=== PATIENT | male | born 1990 | race Caucasian/White ===

== ENCOUNTER 2018-03-20 22:26 | Inpatient (IN) | payer BC, OTHER ==
[~2018-03-20] VITALS: Ht 195.6 cm; Wt 72.6 kg
--- NOTE | 2018-03-20 23:30 | NUR ---
PRE-ADMISSION NOTE VS BP-135/94 T- P-111 R-20 PA-04/11. Sp02 AT 98% IN RA. PATIENT SEEN IN INTAKE. PATIENT INTOXICATED, FACE FLUSHED, ANXIOUS, RESTLESS, FIDGETY , UNABLE TO STAY STILL, SENSITIVE TO LIGHT AND C/O HEADACHE. AMBULATORY, GAIT IS SLIGHTLY UNSTEADY. PATIENT WTH HISTORY OF SEIZURE, LAST ONE WAS LAST Tuesday03/17/18 (4 SEIZURE). NO KNOWN ALLERGY BUT SENSITIVE TO SUBOXONE. PATIENT IS HERE FOR ETOH, BENZO AND OPIATE. WILL CONTINUE ADMISSION ON 3RD FLOOR.
[2018-03-20] MEDS ORDERED: DIAZEPAM 10 MG TABLET PO PRN (23:45)
[2018-03-20] MEDS ORDERED: MIRALAX 17 GM POWD.PACK PO PRN (23:45)
[2018-03-20] MEDS ORDERED: ONDANSETRON ODT 4 MG TAB.RAPDIS SL PRN (23:45)
[2018-03-20] MEDS ORDERED: MAGNESIUM HYDROXIDE 30 ML LIQUID UDC PO PRN (23:45)
[2018-03-20] MEDS ORDERED: NICOTINE 14 MG/24HR PATCH TD PRN (23:45)
[2018-03-20] MEDS ORDERED: NICOTINE POLACRILEX 4 MG GUM-PK OF TEN BC PRN (23:45)
[2018-03-20] MEDS ORDERED: LORAZEPAM 2 MG/1 ML VIAL IM PRN (23:45)
[2018-03-20] MEDS ORDERED: THIAMINE HCL 200 MG/2 ML VIAL IM ONE (23:45)
[2018-03-20] MEDS ORDERED: diphenhydrAMINE 50 MG CAPSULE PO PRN (23:45)
[2018-03-20] MEDS ORDERED: DICYCLOMINE HCL 20 MG TABLET PO PRN (23:45)
[2018-03-20] MEDS ORDERED: BUPRENORPHINE HCL 2 MG TAB.SUBL SL PRN (23:45)
[2018-03-20] MEDS ORDERED: LOPERAMIDE HCL 2 MG CAPSULE PO PRN ×2 (23:45)
[2018-03-20] MEDS ORDERED: ONDANSETRON 4 MG/2 ML VIAL IM PRN (23:45)
[2018-03-20] MEDS ORDERED: DIAZEPAM 5 MG TABLET PO PRN (23:45)
[2018-03-20] MEDS ORDERED: MAG HYDROX/AL HYDROX/SIMETH 30 ML LIQUID UDC PO PRN (23:45)
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
[2018-03-21] MEDS ORDERED: PHENOBARBITAL 60 MG TABLET PO SCH ×3 (00:15→21:00)
[2018-03-21 00:19] LABS: BASOPHILS # (AUTO) 0.1 K/uL (0.0-8.0); BASOPHILS % (AUTO) 1.2 % (0.0-2.0); EOSINOPHILS # (AUTO) 0.1 K/uL (0.0-0.7); EOSINOPHILS % (AUTO) 1.4 % (0.0-7.0); HEMATOCRIT 42.3 % (36.7-47.1); HEMOGLOBIN 14.3 g/dL (12.5-16.3); LYMPHOCYTES # (AUTO) 2.6 K/uL (20.0-40.0); LYMPHOCYTES % (AUTO) 38.7 % (20.5-51.5); MEAN CORPUSCULAR HGB CONC 34 g/dL (32.5-36.3); MEAN CORPUSCULAR VOLUME 85.6 fL (73.0-96.2); MONOCYTES # (AUTO) 0.6 K/uL (2.0-10.0); MONOCYTES % (AUTO) 9.3 % (0.0-11.0); NEUTROPHILS # (AUTO) 3.3 K/uL (1.8-8.9); NEUTROPHILS % (AUTO) 49.4 % (38.5-71.5); PLATELET COUNT (AUTO) 206 K/uL (152-348); RED BLOOD CELL COUNT(AUTO) 4.94 MIL/uL (4.06-5.63); WHITE BLOOD COUNT (AUTO) 6.7 K/uL (3.6-10.2)
[2018-03-21 00:37] LABS: BILIRUBIN,TOTAL 0.6 mg/dL (0.2-1.0); CREATININE 1.1 mg/dL (0.6-1.3); MAGNESIUM 2.2 mg/dL (1.8-2.4); TOTAL PROTEIN, SERUM 8.2 g/dL (6.4-8.2)
[2018-03-21 00:38] LABS: *AMPHETAMINE, URINE POSITIVE (NEGATIVE); *BARBITURATE, URINE POSITIVE (NEGATIVE); *CANNABINOID, URINE POSITIVE (NEGATIVE); *COCCAINE, URINE POSITIVE (NEGATIVE); *OPIATE, URINE NEGATIVE (NEGATIVE); *PHENCYCLIDINE SCREEN,URINE NEGATIVE (NEGATIVE)
[2018-03-21] MEDS: METHOCARBAMOL 750 MG TABLET PO PRN ×2 (00:39→23:22)
--- NOTE | 2018-03-21 00:43 | NUR ---
PRN SUBUTEX AND ROBAXIN ADMIN PATIENT ANXIOUS, SWEATING, CHILLS, STUFFY NOSE, NAUSEATED, TREMORS, FIDGETY, C/O HEADACHE . COWS 23 . WILL MONITOR FOR EFFECTIVENESS
[2018-03-21 00:48] LABS: THYROID STIMULATING HORMONE 0.201 mIU/mL (0.358-3.740)
[2018-03-21] MEDS ORDERED: NICO-672 TD (01:28)
--- NOTE | 2018-03-21 01:30 | NUR ---
PRN MOTRIN ADMIN PATIENT C/O HEADACHE. WILL MONITOR FOR EFFECTIVENESS
--- NOTE | 2018-03-21 02:30 | NUR ---
PRN MOTRIN RE-ASSESSMENT PATIENT STATES MOTRIN MILDLY EFFECTIVE. WILL CONTINUE TO MONITOR.
--- NOTE | 2018-03-21 03:30 | NUR ---
PRN VALIUM , BENADRYL AND TYLENOL ADMIN PATIENT ANXIOUS, RESTLESS, IRRITABLE, AGITATED, UNABLE TO STAY STILL, PACING INSIDE ROOM, KEEP ASKING TO GO DOWN TO SMOKE. SOLOMONWA 19. WILL MONITOR FOR EFFECTIVENESS Addendum: 03/21/18 at 0731 by ANGIE NAVA LVN PATIENT UNABLE TO SLEEP AND C/O HEADACHE.
--- NOTE | 2018-03-21 04:30 | NUR ---
PRN VALIUM , TYLENOL RE-ASSESSMENT PATIENT LESS ANXIOUS. CIWA 8 UPON ASSESSMENT . TYLENOL HELPFUL AND EFFECTIVE. ON 1:1 FOR UNSTEADY GAIT. RESPIRATION EVEN AND UNLABORED. WILL CONTINUE TO MONITOR
[2018-03-21] MEDS ORDERED: QUET100T PO (05:22)
[2018-03-21] MEDS ORDERED: GABA600T2 PO (05:22)
[2018-03-21] MEDS ORDERED: BUPR8TAB4 SL (05:25)
--- NOTE | 2018-03-21 06:00 | NUR ---
PRN BENADRYL RE-ASSESSMENT PATIENT SLEEPING. RESPIRATION EVEN AND UNLABORED. WILL CONTINUE TO MONITOR
--- NOTE | 2018-03-21 07:30 | NUR ---
Start of Shift Floorworker Lasting received report on 27 year old male admitted to [facility] on 03/20/18 for medical management of ETOH, Benzodiazepine, Heroin, Cocaine and Subutex withdrawals. Pt endorses NKA, full code and regular diet. Endorses a PMH of Kidney failure, Bilateral sciatica, Herniated disc of the neck, Ankylosing Spondylitis, and Hepatitis C. PPH of anxiety, depression, ADHD, PTSD, Insomnia and Bipolar DO. Pt to be started on Subutex and Phenobarbital tapers. Pts last COWS 11 and CIWA 8, per report. Pt receivd PRN Subutex(withdrawals), Phenobarbital(withdrawals), Valium(anxiety), Tylenol(pain), Benadryl(insomnia), Motrin(pain) and Robaxin(muscle spasms), per NOC report. Floorworker Lasting encounters pt in pts room, resting with eyes closed and even and unlabored respirations at 14. Bed in low position with wheels locked and side rails up x2. Will continue to monitor, support and encourage according to plan of care. Addendum: 03/21/18 at 1510 by SAUD MCKEON RN Pt has 1:1 staffing at bedside due to an unsteady gait and safety.
--- NOTE | 2018-03-21 07:38 | NUR ---
END OF SHIFT NOTE PATIENT SLEPT 1 HOUR. FLUID INTAKE OF 1,000. VOIDED X 1. NO BM. PATIENT IS A 27 YEAR OLD MALE NEWLY ADMITTED FOR ETOH/BENZO /OPIATE WITHDRAWAL. PATIENT WAS GIVEN PRN SUBUTEX , ROBAXIN, SUBUTEX , VALIUM ,TYLENOL AND BENADRYL. PATIENT WAS PLACED ON 5 DAY SUBUTEX AND 5 DAY PHENOBARBITAL. SAFETY MEASURES IN PLACE. CALL LIGHT IN REACH. WILL CONTINUE TO MONITOR . LAST AND SOLOMONWA 8. Addendum: 03/21/18 at 0751 by ANGIE NAVA LVN PATIENT WAS PUT ON 1:1 FOR SAFETY DUE TO UNSTEADY GAIT
[2018-03-21 08:30] VITALS: BP 104/68
[2018-03-21] MEDS ORDERED: TUBERCULIN,PURIF.PROT.DERIV. 5 TU/0.1 ML TEST ID ONE (09:00)
[2018-03-21] MEDS: FOLIC ACID 1 MG TABLET PO SCH (09:53)
[2018-03-21] MEDS: GABAPENTIN 300 MG CAPSULE PO SCH ×4 (09:53→21:55)
[2018-03-21] MEDS: BUPRENORPHINE HCL 2 MG TAB.SUBL SL SCH ×4 (09:54→21:55)
[2018-03-21] MEDS: THIAMINE HCL 100 MG TABLET PO SCH (09:54)
[2018-03-21] MEDS: MULTIVITAMINS,THERAPEUTIC TABLET PO SCH (09:54)
[2018-03-21 12:25] VITALS: BP 132/81
[2018-03-21] MEDS: DIAZEPAM 10 MG TABLET PO PRN ×2 (12:42→23:22)
--- NOTE | 2018-03-21 12:42 | NUR ---
PRN Valium(10 mg) Pt with a CIWA of 14, complaints of nausea, anxiety and agitation. Deputy Clerk Of Superior Court administered medication per MD order and pt tolerated well. Will continue to monitor, support and encourage according to plan of care.
--- NOTE | 2018-03-21 13:42 | NUR ---
PRN Re-Assessment Pt endorses relief from anxiety and is "tired, think I am going to nap after I take my meds and eat." Medication effective, will continue to monitor, support and encourage according to plan of care.
[2018-03-21] MEDS: IBUPROFEN 600 MG TABLET PO PRN ×2 (14:04→21:55)
[2018-03-21] MEDS: PHENOBARBITAL 60 MG TABLET PO SCH ×2 (14:04→17:00)
[2018-03-21] MEDS: ACETAMINOPHEN 325 MG TABLET PO PRN (14:04)
--- NOTE | 2018-03-21 14:04 | NUR ---
PRN Tylenol and Motrin Pt has pain 05/12. Pt states he has pain, in his back and neck. Pt states the pain is not muscle aches or spasms, but related to chronic issues. Pt requests both medications and automatic typewriter inspector administetred with pt toelrating well. Will continue to monitor, support and encourage according to plan of care.
--- NOTE | 2018-03-21 15:04 | NUR ---
PRN Re-Assessment Unable to assess at his time, pt is resting with eyes closed, even and unlabored respirations, 14. Will continue to monitor, support and encourage according to plan of care.
--- NOTE | 2018-03-21 16:00 | NUR ---
COWS/CIWA Deferred Pt resting with eyes closed, even and unlabored respirations. Will continue to monitor, support and encourage according to plan of care.
--- NOTE | 2018-03-21 17:00 | NUR ---
1700 Medication Dried Fruit Washer held medications due to sedation. Pt resting with eyes closed and even and unlabored respirations. Will continue to monitor, support and encourage according to plan of care.
--- NOTE | 2018-03-21 19:01 | NUR ---
End of Shift Director Of Loss Prevention received report on 27 year old male admitted to [facility] on 03/20/18 for medical management of ETOH, Benzodiazepine, Heroin, Cocaine and Subutex withdrawals. Pt endorses NKA, full code and regular diet. Endorses a PMH of Kidney failure, Bilateral sciatica, Herniated disc of the neck, Ankylosing Spondylitis, and Hepatitis C. PPH of anxiety, depression, ADHD, PTSD, Insomnia and Bipolar DO. Pt started on Phenobarbital and Subutex tapers today. Pts last COWS 15 and CIWA 14, recorded at 1230. Last COWS/CIWAS/VS deferred due to pt sleeping. Pt received PRN Valium(10 mg) on my shift. Pt is attention seeking and easily irritated. Pt fought sleep for hours and has been resting since early this afternoon. Bed in low position with wheels locked and side rails up x2.
[2018-03-21 20:00] VITALS: BP 98/71
--- NOTE | 2018-03-21 20:00 | NUR ---
Start of Shift Note Received a 27 y/o male px, admitted for medically supervised withdrawal from ETOH, Benzos, Opiate, cocaine and Adderal. Px is placed on 5 day Phenobarbital and 5 day Subutex taper. Last reported COWS 15 and CIWA 14 at 1200 by AM shift nurse. Px is on 1 to 1 for unsteady gait and safety. During the rounds at 1999, px is asleep on bed in fowlers position. Drinks and snacks noted on top of the bed side table. Bed on lowest position, side rails up and call light within reach. Well continue to monitor.
--- NOTE | 2018-03-21 21:00 | NUR ---
RN note Patient brought with him medications that are his uncle's. Uncle was contacted and he stated that he does not want to pickle processor the medications and gave verbal consent for the medications to be destroyed. Patient signed consent for medications to be destroyed by pharmacy. Medications were sent to pharmacy to be destroyed.
--- NOTE | 2018-03-21 21:15 | NUR ---
Px woke up Px appears drowsy and has unsteady gait. Px was mad about not waking him up at dinner time. Px also complained that he missed his last dose of his taper medications before night dose because nobody wake him up. Px also complained about riding the W/C when he wants to go smoke in the patio. Px was redirected and talked to calmly.
[2018-03-21] MEDS: QUETIAPINE FUMARATE 100 MG TABLET PO SCH (21:55)
--- NOTE | 2018-03-21 21:55 | NUR ---
PRN Medications At 215, px received Motrin 600 mg/tab, 1 tab PO for body pains of 8/10. At 232, px received Robaxin 750 mg/tab, 1 tab PO for body pains of 7/10 and Valium 10 mg/tab, 1 tab for CIWA 14. We'll continue to monitor.
--- NOTE | 2018-03-21 23:00 | NUR ---
Reassessment of body aches Px stated "I am still in pain, it's 04/11. "
[2018-03-22] VITALS: BP 113/69
[2018-03-22 04:00] VITALS: BP 110/63
--- NOTE | 2018-03-22 04:00 | NUR ---
COWS and CIWA deferred COWS and CIWA deferred at 0000 and 0400 due to the px is asleep, to assess if the px is awake per doctor's order. We'll continue to monitor.
--- NOTE | 2018-03-22 07:10 | NUR ---
End of Shift Note During the shift at 2114, px woke up mad, complaining of not waking him up at dinner time and missing his dose of taper medications before his night meds. Px also complained about wheeling him with a W/C when going to the patio. Pxs oral intake is 1500ML, no urine nor BM. Px slept for 8 hours. Last COWS 13 CIWA 14. At 0630, px is asleep on bed in fowlers position. Bed on lowest position, side rails up and call light within reach. Well continue to monitor. Px endorsed to AM shift nurse.
--- NOTE | 2018-03-22 07:30 | NUR ---
START OF SHIFT Pt is a 27 yr old male admitted on 03/20/18 fro ETOH/Benzo/Opiate withdrawal and is on 5 day Phenobarbital and 5 day Subutex taper as ordered. Medication ana maria well. Received report from restaurant shift supervisor nurse. Pt received Motrin PRN, Robaxin PRN and Valium 10mg PO PRN during the night. Medication was effective. Pt slept for 8 hrs. Last COWS score was 13 and CIWA score was 14. Pt is on 1:1 for unsteady gait. Pt is currently in bed sleeping with respirations even and unlabored. Skin is intact, warm and moist to touch. Pt is on fall and seizure precautions. Call light is within reach. Will continue to monitor.
--- NOTE | 2018-03-22 08:00 | NUR ---
COWS AND CIWA SCORE IS DEFERRED Pt is asleep at this time with respiration even and unlabored. COWS and CIWA score is deferred at this time. Will continue to monitor.
[2018-03-22 08:08] VITALS: BP 123/89
--- NOTE | 2018-03-22 08:20 | NUR ---
COMMUNICATION Per ervin Richmond to discontinue 1:1 sitter. 1:1 sitter was discontinued. Will continue to monitor pt frequently.
[2018-03-22] MEDS: MULTIVITAMINS,THERAPEUTIC TABLET PO SCH (09:00)
[2018-03-22] MEDS: FOLIC ACID 1 MG TABLET PO SCH (09:00)
[2018-03-22] MEDS: THIAMINE HCL 100 MG TABLET PO SCH (09:00)
[2018-03-22 09:07] LABS: HEPATITIS B SURFACE AG Negative (Negative)
[2018-03-22] MEDS: BUPRENORPHINE HCL 2 MG TAB.SUBL SL SCH ×3 (09:32→20:57)
[2018-03-22] MEDS: GABAPENTIN 300 MG CAPSULE PO SCH ×4 (09:32→20:57)
[2018-03-22] MEDS: PHENOBARBITAL 60 MG TABLET PO SCH ×4 (09:32→20:57)
--- NOTE | 2018-03-22 09:32 | NUR ---
BEHAVIORAL NOTE During medication pass, Pt was noted with increase agitation and anxiety, pt stated of wanting to smoke. Pt was explained after medication administration, he was allowed to smoke. Pt was noted fidgety and was noted to have a slurred speech. During Subutex 4mg SL was administered as ordered, Pt was educated on how to properly administered Subutex. Once the Subutex was placed underneath his tongue, pt became agitated and irritable stating he needed to use the restroom. Pt was told he had to wait until the Subutex was fully dissolved. Pt was passive and went into the bathroom. Pt was explained one more time in regards to the policy. Pt shouted out loud, "fuck this shit" and slammed the door opened. Pt was redirected about behavior and was noted relaxed. KEYANNA and Dr. Mora was notified about behavior. Will continue to monitor.
[2018-03-22] MEDS: DIAZEPAM 10 MG TABLET PO PRN (11:16)
[2018-03-22] MEDS: IBUPROFEN 600 MG TABLET PO PRN (11:16)
--- NOTE | 2018-03-22 11:16 | NUR ---
PRN GIVEN Pt c/o increase anxiety and sensitivity to light. Pt states of having cold chills and tremors. CIWA score was 12. Valium 10mg PO PRN was given as ordered. Will continue to monitor. Addendum: 03/22/18 at 1230 by ANJALI ODEN AUTOMAT WATCHER Motrin 600mg PO PRN was given for muscle aching 02/09.
[2018-03-22 12:00] VITALS: BP 99/63
--- NOTE | 2018-03-22 12:16 | NUR ---
PRN RE-ASSESSMENT Valium 10mg PO PRN and Motrin 600mg PO PRN was effective. CIWA score was 9. Pt continues to c/o muscle aching but subsided to 3/10. Will continue to monitor.
--- NOTE | 2018-03-22 15:53 | NUR ---
MEDICATION HELD Subutex 4mg SL as scheduled at 1500 was held due to pt is too sedated. Bus Starter attempted several times to wake up the pt, but there was no success. DAVID Zhang and DAVID Eduardo were witnesses. Dr. Mora was made aware. Pt remains in bed sleeping with respirations even and unlabored. RR 16. Safety precautions observed. Will continue to monitor.
[2018-03-22 16:00] VITALS: BP 113/79
--- NOTE | 2018-03-22 16:00 | NUR ---
COWS AND CIWA SCORE DEFERRED Pt is sleeping at this time with respirations even and unlabored. RR is 16. VS are 113/79 P 72 and O2 99%. COWS and CIWA score is deferred at this time. Will continue to monitor.
--- NOTE | 2018-03-22 17:30 | NUR ---
MEDICATION HELD Phenobarbital 60mg PO and Neurontin 900mg PO as scheduled at 1700 was held due to pt is too sedated. Linotype Operator attempted several times to wake up the pt, but there was no success. Dr. Mora was made aware. Pt remains in bed sleeping with respirations even and unlabored. RR 16. Safety precautions observed. Will continue to monitor.
[2018-03-22 17:43] LABS: BILIRUBIN,DIRECT 0.1 mg/dL (0.0-0.2); BILIRUBIN,TOTAL 0.3 mg/dL (0.2-1.0); CREATININE 1.1 mg/dL (0.6-1.3); MAGNESIUM 1.9 mg/dL (1.8-2.4); TOTAL PROTEIN, SERUM 5.9 g/dL (6.4-8.2)
[2018-03-22 18:17] LABS: THYROID STIMULATING HORMONE 1.185 mIU/mL (0.358-3.740)
--- NOTE | 2018-03-22 19:13 | NUR ---
END OF SHIFT Pt is a 27 yr old male admitted on 03/20/18 for ETOH/Benzo/Opiate withdrawal and is on 5 day Phenobarbital and 5 day Subutex taper as ordered. Medication was ana maria well. Pt has been noted with increase fatigue, difficulty thinking clearly and slurred speech during the day. Pt was noted with anxiety and increase agitation in the morning but was redirected by staff. Pt then became apologetic for his behavior. Pt received Valium 10mg PO PRN and Motrin 600mg PO PRN at 1116. Medication was effective. Last COWS score was 11 and CIWA score was 9 at 1200. Encouraged increase fluid intake for hydration. Subutex 4mg SL as scheduled at 1500 was held and Phenobarbital 60mg PO and Neurontin 900mg PO was held due to Pt was too sedated. Pt is on fall and seizure precautions. Call light is within reach. Endorsed to copying machine mechanic nurse to continue with care.
--- NOTE | 2018-03-22 19:50 | NUR ---
Start of Shift Note Received a 27 y/o male px, admitted for medically supervised withdrawal from ETOH, Benzos, Opiate, cocaine and Adderal. Px is placed on 5 day Phenobarbital and 5 day Subutex taper. Last reported COWS 11 and CIWA 9 at 1200 by AM shift nurse. During the rounds at 1940, px is awake on bed in fowlers position. Px appears anxious. Drinks and snacks noted on top of the bed side table and cabinet. Px stated My anxiety is high and I am in pain around 8/10. They didnt wake me up again this afternoon for the taper medications. This is not acceptable. Explained to the px that he was so sedated and knocked out that he cant be awaken around that time thats why the nurse didnt administer the medications according to the report of the AM shift nurse. Bed on lowest position, side rails up and call light within reach. Well continue to monitor.
[2018-03-22 20:00] VITALS: BP 122/80
[2018-03-22] MEDS: BACLOFEN 10 MG TABLET PO SCH (20:57)
[2018-03-22] MEDS: QUETIAPINE FUMARATE 100 MG TABLET PO SCH (20:57)
[2018-03-22] MEDS: CLONIDINE HCL 0.1 MG TABLET PO SCH (20:58)
--- NOTE | 2018-03-23 01:30 | NUR ---
PRN medications Px woke up anxious and asking something to help him go back to sleep. Px also complained of body aches /. Px received Valium 10 mg PO and Robaxin 750 mg PO. We'll continue to monitor.
[2018-03-23] MEDS: DIAZEPAM 10 MG TABLET PO PRN (01:34)
[2018-03-23] MEDS: METHOCARBAMOL 750 MG TABLET PO PRN (01:34)
--- NOTE | 2018-03-23 02:35 | NUR ---
Reassessment of Pain reassessment was deferred after an hour of administration of Robaxin 750 mg PO due to the px is asleep. We'll continue to monitor.
--- NOTE | 2018-03-23 07:10 | NUR ---
End of Shift Note During the shift at 0134, px received Robaxin 750 mg for body pains and Valium 10 mg PO for CIWA 12. Pxs oral intake is 800 ml, voided 2x, without BM. Px slept for 7 hours. At 0630, px is asleep on bed in fowlers position. Last CIWA 12. Bed on lowest position, side rails up and call light within reach. Well continue to monitor. Px endorsed to AM shift nurse.
--- NOTE | 2018-03-23 07:43 | NUR ---
BEGINNING OF SHIFT Patient endorsement report received from manager ui nurse, all pertinent information discussed. Patient is a 27 year old male with admitting Dx: Etoh/Opiate/BZO withdrawal. Also hx of substance use of: Crack cocaine, cocaine, Subutex, and Adderall. Patient continues on a 5 day Subutex and 5 day phenobarbital taper as ordered, patient is scheduled to begin day 3 of taper. Per manager ui patient received PRN: Robaxin and Valium, per manager ui medications were effective, Per manager ui patient with last cow score of: 10 and ciwa score of: 12. patient slept for 7 hours. fall and seizure precautions in place and observed at all times. Patient received in bed with eyes closed, respirations are even and unlabored, patient sound asleep, but arousable to verbal stimuli. Will educate patient regarding plan of care for the day, and medication regimen, will continue to monitor closely. safety measures in place.
[2018-03-23 08:48] VITALS: BP 134/85
[2018-03-23] MEDS: MULTIVITAMINS,THERAPEUTIC TABLET PO SCH (08:50)
[2018-03-23] MEDS: BACLOFEN 10 MG TABLET PO SCH ×2 (08:51→20:26)
[2018-03-23] MEDS: GABAPENTIN 300 MG CAPSULE PO SCH ×4 (08:51→20:26)
[2018-03-23] MEDS: FOLIC ACID 1 MG TABLET PO SCH (08:51)
[2018-03-23] MEDS: THIAMINE HCL 100 MG TABLET PO SCH (08:51)
[2018-03-23] MEDS: CLONIDINE HCL 0.1 MG TABLET PO SCH ×2 (08:51→20:26)
[2018-03-23] MEDS: PHENOBARBITAL 60 MG TABLET PO SCH ×3 (08:51→20:26)
[2018-03-23] MEDS ORDERED: BUPRENORPHINE HCL 2 MG TAB.SUBL SL SCH (09:00)
[2018-03-23] MEDS: IBUPROFEN 600 MG TABLET PO PRN (10:29)
--- NOTE | 2018-03-23 10:29 | NUR ---
PRN MOTRIN Patient complain of 5/10 pain to back and bilateral lower extremities, provided with non pharmacological interventions with no relief, administered motrin as ordered, will monitor effectiveness of medication.
--- NOTE | 2018-03-23 11:29 | NUR ---
IBUPROFEN REASESSMENT Patient reports medication somewhat effective, current pain level 5/10, provided patient with non pharmacological interventions will continue to monitor.
[2018-03-23] MEDS ORDERED: DIAZEPAM 10 MG TABLET PO SCH (12:00)
[2018-03-23 12:05] VITALS: BP 110/71
[2018-03-23] MEDS: BUPRENORPHINE HCL 2 MG TAB.SUBL SL SCH ×2 (14:07→20:26)
[2018-03-23] MEDS: KETOROLAC TROMETHAMINE 30 MG INJ IM PRN ×2 (14:10→20:25)
--- NOTE | 2018-03-23 14:10 | NUR ---
PRN TORADOL Patient reports severe pain 8/10 to back and bilateral lower extremities per patient pain r/t sciatic nerve. Per Dr. Abby betts to administer Toradol injection as ordered, medication administered as ordered, will continue to monitor.
--- NOTE | 2018-03-23 14:40 | NUR ---
TORADOL REASSESSMENT Patient reports medication effective, current pain level 2/10, tolerable as per patient. will continue to monitor.
--- NOTE | 2018-03-23 15:45 | NUR ---
Client was prompted to attend group counseling sessions.
[2018-03-23 16:51] VITALS: BP 118/71
--- NOTE | 2018-03-23 19:06 | NUR ---
END OF SHIFT Patient monitored closely during shift. Patient alert and oriented x4. Admitting Dx: ETOH/Opiate/BZO withdrawal. Patient continues on 5 day Phenobarbital taper and 5 day Subutex taper as ordered, well tolerated, patient currently on day 3 of taper. Patient presented with: c/o chills, difficultly sitting still, enlarged pupils, bone and joint aches, nasal congestion, abdominal cramps, tremors that can be felt but not seen, anxiety, and gooseflesh, initial cow score of: 15, and ciwa score of: 12, last cow score of: 15, and ciwa score of: 12 Detox medication effective at reducing withdrawal symptoms. Dr. butler was notified of ciwa scores at or above 15. Patient received PRN: Motrin and Toradol as ordered, medications effective one hour post administration. Patient noted disheveled, has a flat affect with anxious and depressed mood. Patient encouraged participation in therapy sessions, noted attending and participating. patient denies any SI/HI, Patient was encouraged to verbalize feelings, encouraged to develop coping skills and utilization of non pharmacological interventions. Encouraged patient to increase PO fluid intake as tolerated. Patients safety measures are in place. call light kept within reach, will continue to monitor. Endorsed to staff nurse, all pertinent information discussed.
--- NOTE | 2018-03-23 19:30 | NUR ---
START OF SHIFT Pt is a 27 y/o male admitted on 03/21/18 for ETOH, benzo, opiate, cocaine withdrawal. Pt is on a 5 day Phenobarbital and 5 day Subutex taper, pt received one time dose of Valium. PRN Toradol and Motrin administered and last COWS 15 and CIWA 12 during day shift. Upon assessment pt presents with anxiety, agitation, restlessness, elevated BP and HR, lower back pain 8/10, toothache 8/10, difficulty staying asleep, sweats, chills, nausea without vomiting, stuffy nose, tremors, tactile disturbances, photosensitivity, intermittently sensitive to sounds, headache and flat affect. Pt refuses Zofran. Medications due. Safety measures in place. Call light within reach. Will continue to monitor.
[2018-03-23 20:00] VITALS: BP 149/89
--- NOTE | 2018-03-23 20:25 | NUR ---
PRN TORADOL INJ ADMINISTRATION Pt reports lower back pain and toothache 05/12. Safety measures in place. Call light within reach. Will continue to monitor.
[2018-03-23] MEDS: QUETIAPINE FUMARATE 100 MG TABLET PO SCH (20:26)
--- NOTE | 2018-03-23 20:55 | NUR ---
PRN TORADOL REASSESSMENT Pt reports pain improved to tolerable level. Safety measures in place. Call light within reach. Will continue to monitor.
--- NOTE | 2018-03-24 | NUR ---
COWS/CIWA DEFERRED AND VITALS REFUSED Pt laying in bed with eyes closed, COWS/CIWA deferred, to be assessed when pt is awake per orders. Vitals refused. Respirations even and unlabored. Safety measures in place. Call light within reach. Will continue to monitor.
--- NOTE | 2018-03-24 07:14 | NUR ---
END OF SHIFT Pt is a 27 y/o male admitted on 03/21/18 for ETOH, benzo, opiate, cocaine withdrawal. Pt is on a 5 day Phenobarbital and 5 day Subutex taper. Pt presented with anxiety, agitation, restlessness, elevated BP and HR, lower back pain 8/10, toothache 8/10, difficulty staying asleep, sweats, chills, nausea without vomiting, stuffy nose, tremors, tactile disturbances, photosensitivity, intermittently sensitive to sounds, diarrhea, headache and flat affect. Pt refused Zofran and Imodium. Scheduled medications and PRN Toradol administered, effective in S/S of withdrawal as verbalized by pt. Last COWS 18 and CIWA 23. Pt slept 7 hours. Intake 1000 ml, void x 2, stool x 0. Safety measures in place. Call light within reach. Will continue to monitor.
--- NOTE | 2018-03-24 07:40 | NUR ---
START OF SHIFT Client is in room, he is a/o x 4, he is fully ambulatory, pacing in his room, he stated, "I have high levels of anxiety, I feel like I need to move." Client reports agitation, irritability, pins and needle feeling on lower extremities, headache, abdominal cramps, tremors, decreased appetite, inability to sleep, and fatigue. Client presents with anxious mood, flat affect, dilated pupils, tremors, skin warm/clammy, and goosebump . He appears disheveled, his room noted with open bags of chips and candies, scattered dirty clothes on the floor. Encourage client to keep his surroundings clean and free of clutter to prevent a fall, he verbalized understanding. Last CIWA /COWS 18 @ 1999. PRN Toradol IM pain on back, shoulder, and tooth, noted effective. Client slept 7 hrs. Encourage client to increase PO fluid to facilitate detox. Encourage client to attend group therapy to learn skills to maintain sober. Seizure precautions rendered. Call light within reach.
[2018-03-24] MEDS: GABAPENTIN 300 MG CAPSULE PO SCH ×4 (08:28→20:37)
[2018-03-24] MEDS: MULTIVITAMINS,THERAPEUTIC TABLET PO SCH (08:28)
[2018-03-24] MEDS: FOLIC ACID 1 MG TABLET PO SCH (08:28)
[2018-03-24] MEDS: BACLOFEN 10 MG TABLET PO SCH ×2 (08:28→20:37)
[2018-03-24] MEDS: CLONIDINE HCL 0.1 MG TABLET PO SCH ×2 (08:28→20:37)
[2018-03-24] MEDS: THIAMINE HCL 100 MG TABLET PO SCH (08:28)
[2018-03-24] MEDS: BUPRENORPHINE HCL 2 MG TAB.SUBL SL SCH ×3 (08:29→20:37)
[2018-03-24 08:32] VITALS: BP 138/83
[2018-03-24] MEDS ORDERED: PHENOBARBITAL 60 MG TABLET PO SCH (09:00)
[2018-03-24] MEDS: KETOROLAC TROMETHAMINE 30 MG INJ IM PRN ×2 (12:10→20:38)
--- NOTE | 2018-03-24 12:10 | NUR ---
PRN Toradol 30mg IM for toothache L upper molar 06/12
[2018-03-24] MEDS: CLONIDINE HCL 0.1 MG TABLET PO PRN (12:17)
--- NOTE | 2018-03-24 12:17 | NUR ---
PRN Clonidine 0.1mg PO for agitation, anxiety.
[2018-03-24 12:20] VITALS: BP 115/69
--- NOTE | 2018-03-24 12:40 | NUR ---
Reassess PRN Toradol 30mg, effective pain 0/10
[2018-03-24] MEDS ORDERED: BUPRENORPHINE HCL 2 MG TAB.SUBL SL ONE (13:00)
[2018-03-24] MEDS ORDERED: OXCARBAZEPINE 150 MG TABLET PO ONE (13:00)
--- NOTE | 2018-03-24 13:17 | NUR ---
Reassess PRN Clonidine 0.1mg, client reports feeliong less anxious.
[2018-03-24] MEDS ORDERED: BENZOCAINE/MENTH/CETYLPYRD LOZENGE MM PRN (13:45)
[2018-03-24] MEDS: DIAZEPAM 10 MG TABLET PO SCH ×2 (14:36→20:37)
--- NOTE | 2018-03-24 14:36 | NUR ---
PRN Cepacol lozenge MM for sore throat, Excedrin extra strenght 1 tab PO for migraine. Call light within reach.
--- NOTE | 2018-03-24 15:36 | NUR ---
Reassess PRN Cepacol lozenge and Excedrin extra strength client reports feeling somewhat better. Call light within reach.
[2018-03-24 17:06] VITALS: BP 115/65
--- NOTE | 2018-03-24 18:20 | NUR ---
Endorsed to nurse for continuity of care, all pertinent information discussed
--- NOTE | 2018-03-24 18:23 | NUR ---
ASSUMED CARE OF PT . HE IS A/O X 4 INTERACTING WITH PEERS. WILL CONTINUE TO MONITOR AND OFFER SUPPORT.
--- NOTE | 2018-03-24 19:02 | NUR ---
END OF SHIFT: PT CONTINUES ON VALIUM/SUBUTEX TAPER TO MANAGE S/S OF W/D WHICH INCLUDE ANXIETY,DEPRESSION, BODY PAIN ,SWEATS, CHILLS,IRRITABILITY AND AGITATION. PRN TORADOLAND PRN CLONIDINE GIVEN AND EFFECTIVE TO ASSIST IN MANAGING SYMPTOMS OF W/D. HE WAS COMPLIANT WITH GROUP ATTENDANCE. [facility]
--- NOTE | 2018-03-24 19:20 | NUR ---
START OF SHIFT Patient is a 27-year-old male admitted 03/20/18 for ETOH, benzo, and opiate withdrawal, with recent concurrent polysubstance abuse. Patient was originally on a Phenobarbital taper but is now on a modified Valium taper, as of today, 03/24/18. Patient is also on a 5-day Subutex taper, scheduled to end on 03/26/18, tolerating well. Patients last COWS was 16, last CIWA 16, per endorsement. Patient received the following PRN medications today: Toradol IM, Clonidine PO, and Cepacol PO; noted as effective. Upon assessment, patient complains of toothache, upper left-hand side of his mouth, 8/10. Patient also reports generalized body aches 8/10 and a bad headache. Patient is anxious and restless and reports difficulty sleeping stating Elena been up since five this morning. Patient is on fall and seizure precautions with seizure history, most recent seizures reported on 03/17/18 related to withdrawal. Safety measures in place, side rails up x2, bed locked in low position, call light within reach. Will continue to monitor.
[2018-03-24 20:00] VITALS: BP 123/77
[2018-03-24] MEDS: QUETIAPINE FUMARATE 100 MG TABLET PO SCH (20:36)
[2018-03-24] MEDS: OXCARBAZEPINE 150 MG TABLET PO SCH (20:37)
[2018-03-24] MEDS: BENZOCAINE ORAL CARE 12 ML BOTTLE MM PRN (20:38)
--- NOTE | 2018-03-24 20:38 | NUR ---
VICKIE SHANE Patient complains of toothache at upper left-hand side of his mouth, 8/10 on pain scale. Patient observed holding his left cheek with some facial grimace noted. VICKIE Anbesol provided to patient for pain relief. Safety measures in place, call light within reach. Will monitor for effectiveness. Addendum: 03/24/18 at 2139 by AKIKO HANNA LVN Route: Topical application.
--- NOTE | 2018-03-24 20:38 | NUR ---
PRN TORADOL Patient reports body aches 8/10 on pain scale. PRN Toradol 30mg IM administered at patient's left ventrogluteal; patient tolerated well. Safety measures in place, call light within reach. Will reassess for effectiveness in 30 minutes.
--- NOTE | 2018-03-24 21:08 | NUR ---
PRN TORADOL & ANBESOL REASSESSMENT Patient reports body aches 4/10 on pain scale and states that toothache is "much better." PRN meds effective. Safety measures in place, side rails up x2, bed locked in low position, call light within reach. Will continue to monitor.
[2018-03-25] VITALS: BP 104/68
[2018-03-25 04:00] VITALS: BP 121/79
[2018-03-25] MEDS: ACETAMINOPHEN 325 MG TABLET PO PRN (05:04)
[2018-03-25] MEDS: HYDROXYZINE PAMOATE 25 MG CAPSULE PO PRN ×2 (05:04→12:20)
--- NOTE | 2018-03-25 05:04 | NUR ---
PRN TYLENOL & VISTARIL Patient reports lower back pain and bilateral leg pain 6/10 on pain scale. Patient also reports feeling anxious. PRN Tylenol and PRN Vistaril given PO. Safety measures in place, side rails up x2, bed locked in low position, call light within reach. Will monitor for effectiveness.
--- NOTE | 2018-03-25 06:04 | NUR ---
PRN TYLENOL & VISTARIL REASSESSMENT Upon reassessment, patient observed sleeping in bed, HOB elevated to 45 degrees. Respirations even and unlabored, 16/min. Unable to assess for effectiveness of PRN meds at this time. Safety measures in place, side rails up x2, bed locked in low position, call light within reach. Will continue to monitor.
--- NOTE | 2018-03-25 07:12 | NUR ---
END OF SHIFT Patient is a 27-year-old male admitted 03/20/18 for ETOH, benzo, and opiate withdrawal, with recent concurrent polysubstance abuse. Patient was originally on a Phenobarbital taper but is now on a modified Valium taper, as of yesterday, 03/24/18. Patient is also on a 5-day Subutex taper, scheduled to end on 03/26/18, tolerating well. Patients last COWS was 15, last CIWA 15. Patient received the following PRN medications during the shift: Toradol IM, Anbesol topical, Tylenol PO, and Vistaril PO; PRN medications were noted to be effective. Patient slept for 6 hours, total intake of 1,000mL, void x2, stool x0. Patient is on fall and seizure precautions with seizure history, most recent seizures reported on 03/17/18 related to withdrawal. Safety measures in place, side rails up x2, bed locked in low position, call light within reach. Will endorse to day shift.
--- NOTE | 2018-03-25 07:30 | NUR ---
Start of Shift Methods Time Analyst received report on 27 year old male admitted to [facility] on 03/20/18 for medical management of ETOH, Benzodiazepine, Heroin, Cocaine and Subutex withdrawals. Pt endorses NKA, full code and regular diet. Endorses a PMH of Kidney failure, Bilateral sciatica, Herniated disc of the neck, Ankylosing Spondylitis, and Hepatitis C. PPH of anxiety, depression, ADHD, PTSD, Insomnia and Bipolar DO, with a history of seizures, last 03/20. Pt currently on Subutex and Phenobarbital tapers. Pts last COWS 15 and CIWA 15,per report. Pt received Toradol(pain), Tylenol(pain) and Vistaril(anxiety) per NOC report. Methods Time Analyst encounters pt in pts room, resting with eyes closed and even and unlabored respirations at 14. Bed in low position with wheels locked and side rails up x2. Will continue to monitor, support and encourage according to plan of care.
[2018-03-25 08:31] VITALS: BP 106/75
[2018-03-25] MEDS: OXCARBAZEPINE 150 MG TABLET PO SCH ×2 (08:58→21:03)
[2018-03-25] MEDS: GABAPENTIN 300 MG CAPSULE PO SCH ×4 (08:58→21:03)
[2018-03-25] MEDS: THIAMINE HCL 100 MG TABLET PO SCH (08:58)
[2018-03-25] MEDS: MULTIVITAMINS,THERAPEUTIC TABLET PO SCH (08:58)
[2018-03-25] MEDS: BACLOFEN 10 MG TABLET PO SCH ×2 (08:58→21:03)
[2018-03-25] MEDS: CLONIDINE HCL 0.1 MG TABLET PO SCH ×2 (08:58→21:03)
[2018-03-25] MEDS: FOLIC ACID 1 MG TABLET PO SCH (08:58)
[2018-03-25] MEDS: DIAZEPAM 5 MG TABLET PO SCH ×3 (08:58→21:03)
[2018-03-25] MEDS: BUPRENORPHINE HCL 2 MG TAB.SUBL SL SCH ×2 (08:59→21:03)
[2018-03-25] MEDS ORDERED: PHENOBARBITAL 60 MG TABLET PO SCH (09:00)
[2018-03-25] MEDS: KETOROLAC TROMETHAMINE 30 MG INJ IM PRN ×2 (12:21→21:04)
--- NOTE | 2018-03-25 12:21 | NUR ---
PRN Toradol and Vistaril Pt complain of chronic pain in neck and lower back, at 8/10. Pt also requesting anxiety medication. Non-pharmacological interventions discussed. Beauty Operator administered Toradol, IM route and pt tolerated well. Beauty Operator also administered Vistaril per MD order with pt tolerating well. Will continue to monitor, support and encourage according to plan of care.
[2018-03-25 12:30] VITALS: BP 122/74
--- NOTE | 2018-03-25 12:51 | NUR ---
PRN Re-Assessment( IM Toradol ) Pt endorsers some relief from pain, but endorses the chronic nature of his pain, stating, " it is always there, meds help a bit." medication effective. Will continue to monitor, support and encourage according to plan of care
--- NOTE | 2018-03-25 13:21 | NUR ---
PRN Re-Assessment(Vistaril) Pt endorses less anxiety. Pt is bright and energetic, social with peers. Will continue to monitor, support and encourage according to plan of care.
[2018-03-25 16:38] VITALS: BP 118/73
--- NOTE | 2018-03-25 19:00 | NUR ---
End of Shift Pediatric Allergist provided report on 27 year old male admitted to [facility] on 03/20/18 for medical management of ETOH, Benzodiazepine, Heroin, Cocaine and Subutex withdrawals. Pt endorses NKA, full code and regular diet. Endorses a PMH of Kidney failure, Bilateral sciatica, Herniated disc of the neck, Ankylosing Spondylitis, and Hepatitis C. PPH of anxiety, depression, ADHD, PTSD, Insomnia and Bipolar DO, with a history of seizures, last 03/20. Pt currently on Subutex and Phenobarbital tapers. Pts last COWS 11 and CIWA 12, per report. Pt received Toradol(pain) and Vistaril(anxiety) PRN on this shift. Pt is A/O x4 and makes his needs known. Linear thought process with clear speech. Pt was bright, energetic and social in am, became lethargic and somnolent. Pt is cooperative, polite and pleasant with life insurance underwriter. Bed in low position with wheels locked and side rails up x2.
--- NOTE | 2018-03-25 19:20 | NUR ---
START OF SHIFT Patient is a 27-year-old male admitted 03/20/18 for ETOH, benzo, and opiate withdrawal, with recent history of polysubstance abuse. Patient was started on a Phenobarbital taper but is now on a modified Valium taper, as of 03/24/18. Patient is concurrently on a 5-day Subutex taper, tolerating well. Both tapers are scheduled to end tomorrow, 03/26/18. Patients last COWS was 11, last CIWA 12, per endorsement. Patient received the following PRN medications today: Toradol IM and PRN Vistaril PO; noted as effective. Upon assessment, patient complains of lower back pain and bilateral leg pain / stating, I think its getting worse. Patient reports feeling anxious and is visibly restless. Patient is on fall and seizure precautions with seizure history, most recent seizures reported on 03/17/18 related to withdrawal. Safety measures in place, side rails up x2, bed locked in low position, call light within reach. Will continue to monitor.
[2018-03-25 20:00] VITALS: BP 128/83
[2018-03-25] MEDS: QUETIAPINE FUMARATE 100 MG TABLET PO SCH (21:03)
[2018-03-25] MEDS: BENZOCAINE ORAL CARE 12 ML BOTTLE MM PRN (21:04)
--- NOTE | 2018-03-25 21:04 | NUR ---
PRN TORADOL & ANBESOL Patient complains of lower back pain and bilateral leg pain "aching and tight." 8/10 on pain scale. Patient complains of toothache, upper left jaw, 8/10 on pain scale. PRN Toradol 30mg IM and PRN Anbesol topical administered to patient. Safety measures in place, side rails up x2, bed locked in low position, call light within reach. Will monitor for effectiveness.
--- NOTE | 2018-03-25 21:34 | NUR ---
PRN TORADOL & ANBESOL REASSESSMENT Patient states that lower back pain and bilateral leg pain has improved, current rating on pain scale is 4/10. Patient reports that PRN Anbesol is effective. Safety measures in place, side rails up x2, bed locked in low position, call light within reach. Will continue to monitor.
[2018-03-25] MEDS: ASPIRIN/ACETAMINOPHEN/CAFFEINE TABLET PO PRN (22:16)
--- NOTE | 2018-03-25 22:16 | NUR ---
PRN EXCEDRIN Patient reports headache 8/10 on pain scale. PRN Excedrin given PO. Safety measures in place, call light within reach. Will monitor for effectiveness.
--- NOTE | 2018-03-25 23:16 | NUR ---
PRN EXCEDRIN REASSESSMENT Patient reports headache 4/10 on pain scale. PRN Excedrin effective. Safety measures in place, bed locked in low position, side rails up x2, call light within reach. Will continue to monitor.
[2018-03-26] VITALS: BP 118/64
--- NOTE | 2018-03-26 | NUR ---
COWS & CIWA DEFERRED COWS and CIWA deferred at this time due to patient sleeping; to be assessed and scored while patient is awake. Respirations even and unlabored, 14/min. Safety measures in place, side rails up x2, bed locked in low position, call light within reach. Will continue to monitor.
[2018-03-26] MEDS: HYDROXYZINE PAMOATE 25 MG CAPSULE PO PRN (03:04)
[2018-03-26] MEDS: CLONIDINE HCL 0.1 MG TABLET PO PRN (03:04)
[2018-03-26 04:00] VITALS: BP 108/68
--- NOTE | 2018-03-26 04:00 | NUR ---
COWS & CIWA DEFERRED COWS and CIWA deferred at this time due to patient sleeping; to be assessed and scored while patient is awake. Respirations even and unlabored, 16/min. Safety measures in place, call light within reach. Will continue to monitor.
--- NOTE | 2018-03-26 07:35 | NUR ---
END OF SHIFT Patient is a 27-year-old male admitted 03/20/18 for ETOH, benzo, and opiate withdrawal, with recent history of polysubstance abuse. Patient was started on a Phenobarbital taper but is now on a modified Valium taper, as of 03/24/18. Patient is concurrently on a 5-day Subutex taper, tolerating well. Both tapers are scheduled to end today. Patients last COWS was 15, last CIWA 17. Patient received the following PRN medications during shift: Toradol IM and PRN Vistaril PO, PRN Anbesol, and PRN Excedrin; noted as effective. Patient slept for 6 hours, total intake 1,796mL, void x2, stool x0. Patient is on fall and seizure precautions with seizure history, most recent seizures reported on 03/17/18 related to withdrawal. Safety measures in place, side rails up x2, bed locked in low position, call light within reach. Will endorse to day shift.
--- NOTE | 2018-03-26 07:40 | NUR ---
START OF SHIFT Received report from price lister nurse. Pt is in his room getting ready for the day. He is a 27 yo male [facility] for ETOH, BZD, Heroin withdrawal with a h/o using subutex, crack cocaine, and adderall. 5 day phenobarbital and 5 day subutex taper started on 03/21. He is A&O and ambualtory. Pt presents with low back pain, restless legs, anhedonia, and anxiety. His skin is pale and moist. He had 6 hours of restless sleep last night. Safety measures in place.
[2018-03-26 08:00] VITALS: BP 122/80
[2018-03-26] MEDS: CLONIDINE HCL 0.1 MG TABLET PO SCH ×2 (08:47→20:58)
[2018-03-26] MEDS: BACLOFEN 10 MG TABLET PO SCH ×2 (08:48→20:58)
[2018-03-26] MEDS: GABAPENTIN 300 MG CAPSULE PO SCH ×4 (08:48→20:58)
[2018-03-26] MEDS: FOLIC ACID 1 MG TABLET PO SCH (08:48)
[2018-03-26] MEDS: MULTIVITAMINS,THERAPEUTIC TABLET PO SCH (08:49)
[2018-03-26] MEDS: THIAMINE HCL 100 MG TABLET PO SCH (08:49)
[2018-03-26] MEDS: OXCARBAZEPINE 150 MG TABLET PO SCH ×2 (08:49→20:58)
[2018-03-26] MEDS: ASPIRIN/ACETAMINOPHEN/CAFFEINE TABLET PO PRN ×2 (08:49→20:57)
[2018-03-26] MEDS: KETOROLAC TROMETHAMINE 30 MG INJ IM PRN ×2 (08:52→15:31)
--- NOTE | 2018-03-26 08:55 | NUR ---
PRN Toradol and Excedrin Pt reports low back pain pain 7/10, bilateral leg pain 8/10, and migraine headache. PRN Toradol and Excedrin administered.
[2018-03-26] MEDS ORDERED: DIAZEPAM 5 MG TABLET PO SCH (09:00)
--- NOTE | 2018-03-26 09:55 | NUR ---
PRN Toradol and Excedrin reassessment PRN Excedrin effective. Pt's headache is relieved. PRN Toradol somewhat effective. Pt's pain level reduced to 5/10.
[2018-03-26] MEDS ORDERED: BUPRENORPHINE HCL 2 MG TAB.SUBL SL ONE ×2 (11:00→15:45)
[2018-03-26 12:00] VITALS: BP 112/66
[2018-03-26] MEDS: ACETAMINOPHEN 325 MG TABLET PO PRN (13:29)
[2018-03-26] MEDS: METHOCARBAMOL 750 MG TABLET PO PRN (13:30)
[2018-03-26] MEDS: BENZOCAINE ORAL CARE 12 ML BOTTLE MM PRN ×2 (13:31→20:57)
--- NOTE | 2018-03-26 13:39 | NUR ---
PRN Tylenol, Robaxin, Anbesol Pt reports low back pain and bilateral sciatica pain 05/12. PRN Tylenol and Robaxin administered. He reports tooth pain. PRN Anbesol administered.
--- NOTE | 2018-03-26 14:40 | NUR ---
PRN Robaxin, Tylenol, and anbesol reassessment PRN Robaxin and Tylenol effective at reducing pt's back and sciatica pain level to 6/10. PRN Anbesol effective. Pt reports tooth ache is relieved.
--- NOTE | 2018-03-26 15:30 | NUR ---
Client was prompted to attend group counseling sessions.
--- NOTE | 2018-03-26 15:34 | NUR ---
PRN Toradol Pt reports low back pain and bilateral sciatica pain 05/12. PRN Toradol administered.
--- NOTE | 2018-03-26 16:04 | NUR ---
PRN Toradol reassessment PRN Toradol effective. Pt reports pain level was reduced to 4/10.
[2018-03-26 16:30] VITALS: BP 120/68
--- NOTE | 2018-03-26 19:26 | NUR ---
END OF SHIFT Report provided to local sales associate nurse. Pt is in the rec room with other clients. He is a 27 yo male admitted to [facility] on 03/20 for ETOH, BZD, Heroin withdrawal with a h/o using crack cocaine, subutex and adderall. 5 day phenobarbital and 5 day subutex taper started on 03/21. He is A&O and ambulatory. Pt was experiencing ongoing low back pain and bilateral sciatica pain. Minimal other s/s of withdrawal. Dr. Mora ordered one additional dose of Subutex this afternoon as patient plans on continuing with Subutex maintenance for pain management after discharge. Another dose is scheduled for tonight. PRN Robaxin, Excedrin, Tylenol, Anbesol, and Toradol x2 administered. Last COW10 and CIWA 10. He drank 3100mL. Pt was compliant with group meetings. Safety measures in place.
--- NOTE | 2018-03-26 19:53 | NUR ---
START OF SHIFT NOTE Rcvd report from outgoing nurse, pt is currently in group. Pt is a 27 y/o male A/O to person, place, time, and purpose. Pt was admitted for medically supervised withdrawal from ETOH, Benzodiazepines, and Opiates. Pt has been presenting w/ anxiety, agitation, body aches, and sweats. Pt has been c/o chronic low back pain and tooth pain from a recently cracked tooth. Pt has completed taper and is being discharged on 03/27/18. PRN Robaxin and Toradol was given for back pain, noted effective, PRN Excedrin was given for headache, noted effective. PRN Ambesol was given for tooth pain, noted effective. Last CIWA 10 and COWS 10 @ 1600. Call light is within reach. Pt will continue to be monitored and needs met.
[2018-03-26 20:00] VITALS: BP 135/90
[2018-03-26] MEDS ORDERED: IBUP-1955 PO (20:56)
[2018-03-26] MEDS ORDERED: OXCA150T5 PO (20:56)
[2018-03-26] MEDS ORDERED: GABA-534 PO (20:56)
[2018-03-26] MEDS ORDERED: HYDR-3895 PO (20:56)
[2018-03-26] MEDS ORDERED: DICY20TA28 PO (20:56)
[2018-03-26] MEDS ORDERED: METH-406 PO (20:56)
[2018-03-26] MEDS ORDERED: CLON0.1T14 PO (20:56)
[2018-03-26] MEDS: BUPRENORPHINE HCL 2 MG TAB.SUBL SL SCH (20:57)
--- NOTE | 2018-03-26 20:57 | NUR ---
PRN ADMINISTRATION PRN Ambesol given for tooth pain 03/12. Will reassess pt in 1 hr. Addendum: 03/26/18 at 2356 by EVGENY FLANAGAN RN PRN Excedrin given for headache. Will reassess pt in 1 hr.
[2018-03-26] MEDS: QUETIAPINE FUMARATE 100 MG TABLET PO SCH (20:58)
--- NOTE | 2018-03-26 21:57 | NUR ---
PRN REASSESSMENT Pt being reassessed after giving Ambesol and Excedrin. Pt states tooth pain is now 2/10 and his headache is gone.
--- NOTE | 2018-03-27 | NUR ---
CIWA AND COWS DEFERRED. V/S REFUSED Pt is in bed w/ his eyes closed. Pt's breathing is unlabored and even.
[2018-03-27] MEDS: METHOCARBAMOL 750 MG TABLET PO PRN (03:07)
[2018-03-27] MEDS: KETOROLAC TROMETHAMINE 30 MG INJ IM PRN (03:08)
--- NOTE | 2018-03-27 03:08 | NUR ---
PRN ADMINISTRATION Toradol 30mg and Robaxin 750mg given for pain. Pt c/o 06/12 back pain. Pt has had chronic low back pain for the last 9 yrs relieved only by medication. Will reassess pt in 1 hr.
--- NOTE | 2018-03-27 04:08 | NUR ---
PRN REASSESSMENT Pt is in bed w/ his eyes closed. Pt's breathing is unlabored and even.
--- NOTE | 2018-03-27 07:12 | NUR ---
END OF SHIFT NOTE Endorsed pt to oncoming nurse, pt is currently in his room. Pt is a 27 y/o male A/O to person, place, time, and purpose. Pt was admitted for medically supervised withdrawal from ETOH, Benzodiazepines, and Opiates. Pt continues to present w/ anxiety, agitation, body aches, and sweats. Pt has been c/o chronic low back pain and tooth pain from a recently cracked tooth. Pt has completed taper and is being discharged on 03/27/18. PRN Robaxin 750mg and Torado 30mg IM was given for back pain, noted effective, PRN Excedrin was given for headache, noted effective. PRN Ambesol was given for tooth pain, noted effective. Pts fluid intake was 1,720ml and he voided 3 times. Pt slept for 6 hrs. Last CIWA 10 and COWS 111 @ 1999. Call light is within reach.
--- NOTE | 2018-03-27 07:30 | NUR ---
START OF SHIFT Pt is a 27 yr old male admitted on 03/20/18 fro ETOH/Benzo/Opiate withdrawal and completed a Valium taper and and 5 day Subutex taper as ordered. Medication ana maria well. Received report from night supervisor nurse. Pt received Anbesol PRN and Toradol PRN AND Robaxin PRN for pain mgt. Medication was effective. Last COWS score was 10 and CIWA score was 11. Pt is noted with anxiety m/b difficulty staying still and continues to have tooth and back pain. Skin is intact, warm and moist to touch. Safety precautions observed. Call light is within reach. Will continue to monitor.
[2018-03-27 08:00] VITALS: BP 126/83
[2018-03-27] MEDS: IBUPROFEN 600 MG TABLET PO PRN (08:45)
[2018-03-27] MEDS: ASPIRIN/ACETAMINOPHEN/CAFFEINE TABLET PO PRN (08:45)
[2018-03-27] MEDS: THIAMINE HCL 100 MG TABLET PO SCH (08:45)
[2018-03-27] MEDS: GABAPENTIN 300 MG CAPSULE PO SCH (08:45)
[2018-03-27 08:46] VITALS: BP 126/83
[2018-03-27] MEDS: BACLOFEN 10 MG TABLET PO SCH (08:46)
[2018-03-27] MEDS: OXCARBAZEPINE 150 MG TABLET PO SCH (08:46)
[2018-03-27] MEDS: CLONIDINE HCL 0.1 MG TABLET PO SCH (08:46)
[2018-03-27] MEDS: BUPRENORPHINE HCL 2 MG TAB.SUBL SL SCH (08:46)
[2018-03-27] MEDS: FOLIC ACID 1 MG TABLET PO SCH (08:46)
[2018-03-27] MEDS: MULTIVITAMINS,THERAPEUTIC TABLET PO SCH (08:46)
[2018-03-27] MEDS: BENZOCAINE ORAL CARE 12 ML BOTTLE MM PRN (08:49)
--- NOTE | 2018-03-27 09:50 | NUR ---
DISCHARGED NOTE Pt is a 27 yr old male admitted on 03/20/18 fro ETOH/Benzo/Opiate withdrawal and completed a Valium taper and and Subutex taper as ordered. Medication ana maria well. Pt was noted with anxiety m/b difficulty staying still but was able to cope with anxiety level. Pt received Motrin 600mg PO PRN, Excedrin PO PRN and Anbesol jeferson for pain mgt at 0845. Medication was effective. Pt was educated on discharged summary and prescriptions. Pt was able to verbalize understanding. Pt was escorted off the unit at 0938 in stable condition. Pt was discharged to [facility]. Pt left with all belongings, valuables and home medications.
== END 2018-03-27 09:38 | disposition other institution (70) | DRG 895 ==
LOC: SRC 22:50
PROVIDERS: ADMIT Internal Medicine; ATTEND Internal Medicine
PROC: HZ2ZZZZ Detoxification Services for Substance Abuse Treatment (ICD-10-PCS; principal; 2018-03-20)
PROC: HZ41ZZZ Group Counseling for Substance Abuse Treatment, Behavioral (ICD-10-PCS; 2018-03-23)
DX: F10.232 Alcohol dependence with withdrawal with perceptual disturbance (principal); F14.20 Cocaine dependence, uncomplicated; F13.230 Sedative, hypnotic or anxiolytic dependence with withdrawal, uncomplicated; Y90.2 Blood alcohol level of 40-59 mg/100 ml; F11.23 Opioid dependence with withdrawal; Z86.74 Personal history of sudden cardiac arrest; M54.40 Lumbago with sciatica, unspecified side; G47.00 Insomnia, unspecified; F90.9 Attention-deficit hyperactivity disorder, unspecified type; F17.210 Nicotine dependence, cigarettes, uncomplicated; F41.9 Anxiety disorder, unspecified; Z81.1 Family history of alcohol abuse and dependence; Z59.1 Inadequate housing; Z91.89 Other specified personal risk factors, not elsewhere classified; I15.9 Secondary hypertension, unspecified; G89.29 Other chronic pain; B19.20 Unspecified viral hepatitis C without hepatic coma; K08.89 Other specified disorders of teeth and supporting structures; Z79.899 Other long term (current) drug therapy; E07.81 Sick-euthyroid syndrome
CPT/HCPCS: 36415; 70030-TC; 73130; 80307; 80324; 80345; 80346; 80349; 80353; 83690; 83735; 84443; 85025; 86592; 86705; 86803; 87340; 87806; 97165; A9150; G0480; J1885; J3411; J8499; Q0162; Q0163